=== PATIENT | male | born 1995 | race Caucasian/White ===

== ENCOUNTER 2018-12-12 21:32 | Emergency (ER) | payer OTHER ==
[~2018-12-12] VITALS: Ht 180.3 cm; Wt 59.1 kg
[2018-12-12 21:45] VITALS: BP 153/108
[2018-12-12] MEDS ORDERED: DEPRESSION PO (21:59)
[2018-12-13] MEDS ORDERED: OLANZAPINE5 M3 PO (20:23)
== END 2018-12-12 22:01 ==
LOC: ED 21:32
DX: F25.1 Schizoaffective disorder, depressive type (principal); Z98.890 Other specified postprocedural states

== ENCOUNTER 2018-12-13 19:51 | Emergency (ER) | payer SELFPAY ==
[~2018-12-13] VITALS: Ht 182.9 cm; Wt 56.8 kg
[~2018-12-13 19:51] MED LIST: DEPRESSION PO
[2018-12-13] MEDS ORDERED: OLANZAPINE5 M3 PO (20:23)
[2018-12-13 21:09] LABS: EOS # 0.2 (0.04-0.40); EOS % 2.2 % (0.0-4.0); HEMATOCRIT 49.4 % (42.0-52.0); HEMOGLOBIN 16.1 g/dL (13.5-18.0); MEAN CELL VOLUME 91 fl (78-100); MEAN CORPUSCULAR HEMOGLOBIN 30 pg (27-31); MEAN CORPUSCULAR HGB CONC 33 g/dL (33-37); MEAN PLATELET VOLUME 10.5 fl (7.4-10.4); MONO # 0.7 (0.20-0.80); NEU # 6.2 (1.40-6.50); PLATELET COUNT 230 K/mm3 (130-400); RED BLOOD COUNT 5.45 M/mm3 (4.20-5.60); RED CELL DISTRIBUTION WIDTH 13.3 % (11.5-14.5); WHITE BLOOD COUNT 9.1 K/mm3 (4.8-10.8)
[2018-12-13 21:21] LABS: ALBUMIN 4.9 g/dL (3.5-5.0); ALT/SGPT 31 U/L (21-72); AST-SGOT 25 U/L (17-59); CALCIUM 9.7 mg/dL (8.4-10.2); CARBON DIOXIDE 29 mmol/L (22-30); GLUCOSE 110 mg/dL (75-110); POTASSIUM 4.3 mmol/L (3.6-5.0); SODIUM 143 mmol/L (137-145); TOTAL BILIRUBIN 0.3 mg/dL (0.2-1.3)
[2018-12-13 21:23] LABS: ACETAMINOPHEN < 4 ug/mL (10-30)
[2018-12-13 21:24] LABS: ALCOHOL IN-HOUSE < 10 mg/dL
[2018-12-13 21:25] LABS: PH-URINE 7.5 (5.0 - 8.0); URINE APPEARANCE CLOUDY; URINE BILIRUBIN NEGATIVE (NEGATIVE); URINE BLOOD NEGATIVE (NEGATIVE); URINE COLOR YELLOW; URINE GLUCOSE NEGATIVE (NEGATIVE); URINE KETONE NEGATIVE (NEGATIVE); URINE LEUKOCYTE ESTERASE NEGATIVE (NEGATIVE); URINE NITRATE NEGATIVE (NEGATIVE); URINE PROTEIN(semi-quant) NEGATIVE (NEGATIVE); URINE UROBILINOGEN NORMAL (NORMAL); URINE WBC 0-1 /hpf (0-3)
[2018-12-14 19:03] VITALS: BP 120/79
== END 2018-12-14 18:10 ==
LOC: ED 19:51
PROVIDERS: Family Medicine
DX: F20.9 Schizophrenia, unspecified (principal)